=== PATIENT | female | born 1965 | race African-American/Black ===

== ENCOUNTER 2021-05-31 08:13 | Inpatient (IN) ==
[2021-05-31 15:07] LABS: Hematocrit 35.2 VOL% (35.7-47.0); Hemoglobin 11.6 GM/DL (12.0-16.0); Immature Granulocytes % 0.3 %; Immature Granulocytes Absolute 0.02 #; Lymphocytes # 1.8 10*3/uL (1.4-4.0); Lymphocytes % 24.6 % (21.3-54.2); Mean Corpuscular Volume 94.1 FL (87-102); Mean Platelet Volume 10.1 FL (9.6-12.0); Monocytes % 8.1 % (1.7-12.7); Platelet Count 254 T/CUMM (130-400); Red Blood Count 3.74 MC/CUMM (3.8-5.5); Red Cell Distribution Width 14.1 % (9.3-17.3); White Blood Count 7.4 T/CUMM (4-12)
[2021-05-31 15:27] LABS: Bilirubin,Total 1.1 MG/DL (0.20-1.00); Calcium 9.4 MG/DL (8.5-10.1); Osmolality,Calculated 280.4 MOS/KG (273-304); Potassium 3.3 MMOL/L (3.5-5.1); Total Protein 8.5 G/DL (6.4-8.2)
[2021-05-31] MEDS ORDERED: ONDANSETRON 4 MG/2 ML VIAL IV STA (17:57)
[2021-05-31] MEDS ORDERED: HYDROmorphone 2 MG/1 ML VIAL IV STA (17:57)
[2021-05-31] MEDS ORDERED: SODIUM CHLORIDE 0.9% 1,000 ML IV STA (17:57)
[2021-05-31] MEDS ORDERED: GLUCAGON 1 MG VIAL IM PRN (20:37)
[2021-05-31] MEDS ORDERED: ONDANSETRON 4 MG/2 ML VIAL IV PRN (20:37)
[2021-05-31] MEDS ORDERED: DEXTROSE 50% 25 GM/50 ML SYRINGE IV PRN (20:43)
[2021-05-31] MEDS ORDERED: INFLIXIMAB 100 MG/10 ML IV SCH (21:00)
[2021-06-01] MEDS ORDERED: cefTRIAXone 1,000 MG VIAL ONE (00:20)
[2021-06-01] MEDS: ENOXAPARIN 40 MG/0.4 ML SYRINGE SUBCUT SCH ×2 (00:32→20:18)
[2021-06-01] MEDS: cefTRIAXone 2,000 MG in SODIUM CHLORIDE 0.9% 100 ML IV SCH ×2 (00:39→20:16)
[2021-06-01 06:51] LABS: Basophils % 0.2 % (0.0-0.8); Eosinophils % 0.2 % (0.00-10.9); Hematocrit 29.1 VOL% (35.7-47.0); Hemoglobin 9.3 GM/DL (12.0-16.0); Immature Granulocytes % 0.3 %; Immature Granulocytes Absolute 0.02 #; Lymphocytes # 1.7 10*3/uL (1.4-4.0); Lymphocytes % 28.5 % (21.3-54.2); Mean Corpuscular Volume 95.7 FL (87-102); Mean Platelet Volume 10.2 FL (9.6-12.0); Monocytes % 9.2 % (1.7-12.7); Neutrophils % 61.6 % (38.7-73.9); Platelet Count 223 T/CUMM (130-400); Red Blood Count 3.04 MC/CUMM (3.8-5.5); Red Cell Distribution Width 14.4 % (9.3-17.3)
[2021-06-01 07:02] LABS: Bilirubin,Total 0.6 MG/DL (0.20-1.00); Calcium 8.4 MG/DL (8.5-10.1); Osmolality,Calculated 281.3 MOS/KG (273-304); Potassium 3.3 MMOL/L (3.5-5.1); Total Protein 6.4 G/DL (6.4-8.2)
[2021-06-01] MEDS ORDERED: POTASSIUM CHLORIDE 20 MEQ TABLET PO ONE (07:20)
[2021-06-01] MEDS: MORPHINE 2 MG/1 ML SYRINGE IV PRN (08:30)
[2021-06-01] MEDS: SODIUM CHLORIDE 0.9% 1,000 ML IV SCH ×4 (08:50→17:51)
[2021-06-01] MEDS ORDERED: ALBUTEROL/IPRATROPIUM 3 ML NEB RESP TX PRN (09:13)
[2021-06-01] MEDS: predniSONE 20 MG TABLET PO SCH (09:14)
[2021-06-01] MEDS: ISOSORBIDE MONONITRATE 30 MG TABLET PO SCH (09:14)
[2021-06-01] MEDS: ASPIRIN EC 81 MG TABLET PO SCH (09:14)
[2021-06-01] MEDS: METOPROLOL TARTRATE 25 MG TABLET PO SCH (10:49)
[2021-06-01] MEDS: PANTOPRAZOLE 40 MG VIAL IV SCH (10:49)
[2021-06-01] MEDS: POTASSIUM CHLORIDE RIDER 10 MEQ/100 ML PREMIX IV PRN ×3 (10:50→15:12)
[2021-06-01] MEDS ORDERED: ALBUTEROL/IPRATROPIUM 3 ML NEB RESP TX SCH (13:00)
[2021-06-01 18:13] LABS: Bacteria,Urine Occasional /HPF (Few); Bilirubin,Urine Negative (Negative); Blood, Urine Negative (Negative); Glucose,Urine (UA) Negative (Negative); Ketones,Urine 5 mg/dL (Negative); Mucus,Urine Moderate /LPF (Occasional); Nitrite,Urine Negative (Negative); Protein,Urine 30 MG/DL; RBC,Urine 2 /HPF (0-4); Squamous Epithelial Cell,Urine Occasional /HPF (0-10); Urine Appearance CLEAR (Clear); Urine Color Yellow (Yellow); Urine Urobilinogen < 2.0 EU/DL (0.2-1.0)
[2021-06-01] MEDS: ATORVASTATIN 20 MG TABLET PO SCH (20:15)
[2021-06-02] MEDS: SODIUM CHLORIDE 0.9% 1,000 ML IV SCH (02:19)
[2021-06-02 05:43] LABS: Basophils % 0.2 % (0.0-0.8); Eosinophils # 0.1 10*3/uL (0.0-0.87); Hematocrit 28.5 VOL% (35.7-47.0); Hemoglobin 9.4 GM/DL (12.0-16.0); Immature Granulocytes % 0.2 %; Immature Granulocytes Absolute 0.01 #; Lymphocytes # 1.8 10*3/uL (1.4-4.0); Lymphocytes % 36.1 % (21.3-54.2); Mean Platelet Volume 10.2 FL (9.6-12.0); Monocytes % 10.6 % (1.7-12.7); Neutrophils % 50.9 % (38.7-73.9); Platelet Count 241 T/CUMM (130-400); Red Cell Distribution Width 14.3 % (9.3-17.3)
[2021-06-02 05:59] LABS: Calcium 8.2 MG/DL (8.5-10.1); Osmolality,Calculated 287.6 MOS/KG (273-304); Potassium 3.7 MMOL/L (3.5-5.1)
[2021-06-02] MEDS: MORPHINE 2 MG/1 ML SYRINGE IV PRN (07:13)
[2021-06-02] MEDS ORDERED: SODIUM CHLORIDE 0.45% 1,000 ML IV SCH (08:00)
[2021-06-02] MEDS: ASPIRIN EC 81 MG TABLET PO SCH (09:46)
[2021-06-02] MEDS: ISOSORBIDE MONONITRATE 30 MG TABLET PO SCH (09:46)
[2021-06-02] MEDS: METOPROLOL TARTRATE 25 MG TABLET PO SCH (09:46)
[2021-06-02] MEDS: predniSONE 20 MG TABLET PO SCH (09:46)
[2021-06-02] MEDS: PANTOPRAZOLE 40 MG VIAL IV SCH (09:47)
[2021-06-02] MEDS: metroNIDAZOLE INJ 500 MG/100 ML PREMIX IV SCH ×2 (13:00→16:35)
[2021-06-02] MEDS: ATORVASTATIN 20 MG TABLET PO SCH (20:42)
[2021-06-02] MEDS: cefTRIAXone 2,000 MG in SODIUM CHLORIDE 0.9% 100 ML IV SCH (20:42)
[2021-06-02] MEDS: ENOXAPARIN 40 MG/0.4 ML SYRINGE SUBCUT SCH (20:42)
[2021-06-02] MEDS ORDERED: ACETAMINOPHEN 325 MG TABLET PO PRN (21:31)
[2021-06-03] MEDS: metroNIDAZOLE INJ 500 MG/100 ML PREMIX IV SCH ×2 (01:09→08:36)
[2021-06-03 06:32] LABS: Basophils % 0.1 % (0.0-0.8); Eosinophils # 0.1 10*3/uL (0.0-0.87); Eosinophils % 0.9 % (0.00-10.9); Hematocrit 26.5 VOL% (35.7-47.0); Hemoglobin 8.8 GM/DL (12.0-16.0); Immature Granulocytes % 0.3 %; Immature Granulocytes Absolute 0.02 #; Lymphocytes # 2.3 10*3/uL (1.4-4.0); Lymphocytes % 34.2 % (21.3-54.2); Mean Corpuscular HGB Conc 33.2 GM/DL (32-36); Mean Corpuscular Volume 94.3 FL (87-102); Neutrophils % 53.5 % (38.7-73.9); Platelet Count 245 T/CUMM (130-400); Red Blood Count 2.81 MC/CUMM (3.8-5.5); Red Cell Distribution Width 13.8 % (9.3-17.3); White Blood Count 6.7 T/CUMM (4-12)
[2021-06-03 06:57] LABS: Calcium 8.8 MG/DL (8.5-10.1); Osmolality,Calculated 280.1 MOS/KG (273-304); Potassium 3.1 MMOL/L (3.5-5.1)
[2021-06-03] MEDS ORDERED: POTASSIUM CHLORIDE 20 MEQ TABLET PO ONE (07:27)
[2021-06-03] MEDS: ASPIRIN EC 81 MG TABLET PO SCH (08:36)
[2021-06-03] MEDS: ISOSORBIDE MONONITRATE 30 MG TABLET PO SCH (08:36)
[2021-06-03] MEDS: METOPROLOL TARTRATE 25 MG TABLET PO SCH (08:36)
[2021-06-03] MEDS: predniSONE 20 MG TABLET PO SCH (08:36)
[2021-06-03] MEDS: PANTOPRAZOLE 40 MG VIAL IV SCH (08:37)
[2021-06-03 12:06] VITALS: BP 153/83
== END 2021-06-03 13:28 | disposition home or self-care (01) | DRG 392 ==
LOC: N.ED 08:13 → N.EDINP 20:37 → N.2E 06-01 00:33
PROVIDERS: ADMIT Internal Medicine; ATTEND Internal Medicine

== ENCOUNTER 2021-06-13 13:13 | Observation (INO) ==
[2021-06-13] MEDS ORDERED: SODIUM CHLORIDE 0.9% 1,000 ML IV STA (18:11)
[2021-06-13] MEDS ORDERED: ONDANSETRON 4 MG/2 ML VIAL IV STA (18:11)
[2021-06-13] MEDS ORDERED: METOCLOPRAMIDE 10 MG/2 ML VIAL IV STA (18:25)
[2021-06-13] MEDS ORDERED: MORPHINE 2 MG/1 ML SYRINGE IV STA ×2 (18:25→20:37)
[2021-06-13] MEDS ORDERED: PANTOPRAZOLE 40 MG VIAL IV STA (18:25)
[2021-06-13 18:55] LABS: Basophils % 0.1 % (0.0-0.8); Hematocrit 37.2 VOL% (35.7-47.0); Immature Granulocytes % 0.1 %; Immature Granulocytes Absolute 0.01 #; Lymphocytes # 1.6 10*3/uL (1.4-4.0); Lymphocytes % 22.1 % (21.3-54.2); Mean Corpuscular HGB Conc 32.3 GM/DL (32-36); Mean Corpuscular Volume 96.4 FL (87-102); Mean Platelet Volume 9.8 FL (9.6-12.0); Monocytes % 8.9 % (1.7-12.7); Neutrophils % 68.8 % (38.7-73.9); Platelet Count 308 T/CUMM (130-400); Red Blood Count 3.86 MC/CUMM (3.8-5.5); Red Cell Distribution Width 15.1 % (9.3-17.3); White Blood Count 7.1 T/CUMM (4-12)
[2021-06-13 19:16] LABS: Bilirubin,Total 0.6 MG/DL (0.20-1.00); Osmolality,Calculated 278.5 MOS/KG (273-304); Potassium 3.6 MMOL/L (3.5-5.1); Total Protein 8.4 G/DL (6.4-8.2)
[2021-06-13 20:02] LABS: Bilirubin,Urine Negative (Negative); Blood, Urine Negative (Negative); Glucose,Urine (UA) Negative (Negative); Ketones,Urine 5 mg/dL (Negative); Mucus,Urine Occasional /LPF (Occasional); Nitrite,Urine Negative (Negative); Protein,Urine 30 MG/DL; RBC,Urine 2 /HPF (0-4); Squamous Epithelial Cell,Urine Occasional /HPF (0-10); Urine Appearance CLEAR (Clear); Urine Color Yellow (Yellow); Urine Urobilinogen < 2.0 EU/DL (<2.0)
[2021-06-13 20:03] LABS: Urine Specific Gravity > 1.069 (1.001-1.035)
[2021-06-13] MEDS ORDERED: PROMETHAZINE INJ 25 MG in SODIUM CHLORIDE 0.9% 50 ML IV STA (20:43)
[2021-06-13] MEDS ORDERED: SUCRALFATE 1 GM/10 ML UDCUP PO STA (20:43)
[2021-06-13] MEDS ORDERED: ALUM/MAG/SIMETH/LIDO VISC 1:1 30 ML BOTTLE PO STA (20:43)
[2021-06-13] MEDS ORDERED: methylPREDNISolone SOD SUC 40 MG/1 ML VIAL IV STA (20:47)
[2021-06-13] MEDS ORDERED: PROMETHAZINE 25 MG/1 ML VIAL ONE (20:53)
[2021-06-13] MEDS ORDERED: GLUCAGON 1 MG VIAL IM PRN (22:57)
[2021-06-13] MEDS ORDERED: MORPHINE 2 MG/1 ML SYRINGE IV PRN (22:57)
[2021-06-13] MEDS ORDERED: ONDANSETRON 4 MG/2 ML VIAL IV PRN (22:57)
[2021-06-13] MEDS ORDERED: DEXTROSE 50% 25 GM/50 ML SYRINGE IV PRN (23:09)
[2021-06-13] MEDS ORDERED: INFLIXIMAB 100 MG/10 ML IV SCH (23:30)
[2021-06-14] MEDS: LACTATED RINGERS 1,000 ML IV SCH ×2 (00:33→14:04)
[2021-06-14] MEDS: ENOXAPARIN 40 MG/0.4 ML SYRINGE SUBCUT SCH ×2 (00:34→23:10)
[2021-06-14 05:41] LABS: Basophils % 0.2 % (0.0-0.8); Hematocrit 32.1 VOL% (35.7-47.0); Hemoglobin 10.3 GM/DL (12.0-16.0); Immature Granulocytes % 0.5 %; Immature Granulocytes Absolute 0.03 #; Lymphocytes # 0.7 10*3/uL (1.4-4.0); Mean Corpuscular HGB Conc 32.1 GM/DL (32-36); Mean Corpuscular Volume 96.4 FL (87-102); Mean Platelet Volume 9.8 FL (9.6-12.0); Monocytes % 1.5 % (1.7-12.7); Neutrophils % 87.8 % (38.7-73.9); Platelet Count 245 T/CUMM (130-400); Red Blood Count 3.33 MC/CUMM (3.8-5.5); Red Cell Distribution Width 14.8 % (9.3-17.3); White Blood Count 6.6 T/CUMM (4-12)
[2021-06-14 06:10] LABS: Osmolality,Calculated 274.8 MOS/KG (273-304); Potassium 4.1 MMOL/L (3.5-5.1)
[2021-06-14] MEDS: predniSONE 20 MG TABLET PO SCH ×2 (09:23→20:38)
[2021-06-14] MEDS: ASPIRIN EC 81 MG TABLET PO SCH (09:23)
[2021-06-14] MEDS: METOPROLOL TARTRATE 25 MG TABLET PO SCH (09:23)
[2021-06-14] MEDS: PANTOPRAZOLE 40 MG VIAL IV SCH ×2 (09:26→20:40)
[2021-06-14] MEDS ORDERED: ALUM/MAG/SIMETH/LIDO VISC 1:1 30 ML BOTTLE PO PRN (10:34)
[2021-06-14] MEDS ORDERED: ALUM/MAG/SIMETH/LIDO VISC 1:1 30 ML BOTTLE PO ONE (10:34)
[2021-06-14] MEDS: ATORVASTATIN 20 MG TABLET PO SCH (20:38)
[2021-06-15] MEDS: LACTATED RINGERS 1,000 ML IV SCH ×3 (04:09→16:53)
[2021-06-15 06:37] LABS: Basophils % 0.2 % (0.0-0.8); Hematocrit 31.5 VOL% (35.7-47.0); Hemoglobin 10.1 GM/DL (12.0-16.0); Immature Granulocytes % 0.4 %; Immature Granulocytes Absolute 0.02 #; Lymphocytes # 0.9 10*3/uL (1.4-4.0); Lymphocytes % 18.9 % (21.3-54.2); Mean Corpuscular HGB Conc 32.1 GM/DL (32-36); Mean Corpuscular Volume 96.6 FL (87-102); Mean Platelet Volume 10.3 FL (9.6-12.0); Monocytes % 8.2 % (1.7-12.7); Neutrophils % 72.3 % (38.7-73.9); Platelet Count 236 T/CUMM (130-400); Red Blood Count 3.26 MC/CUMM (3.8-5.5); Red Cell Distribution Width 14.9 % (9.3-17.3); White Blood Count 4.8 T/CUMM (4-12)
[2021-06-15 07:07] LABS: Osmolality,Calculated 283.1 MOS/KG (273-304)
[2021-06-15] MEDS: predniSONE 20 MG TABLET PO SCH ×2 (09:35→20:12)
[2021-06-15] MEDS: METOPROLOL TARTRATE 25 MG TABLET PO SCH (09:35)
[2021-06-15] MEDS: ASPIRIN EC 81 MG TABLET PO SCH (09:35)
[2021-06-15] MEDS: PANTOPRAZOLE 40 MG VIAL IV SCH ×2 (09:38→20:12)
[2021-06-15] MEDS ORDERED: LIDOCAINE 2% 5 ML VIAL ONE (13:30)
[2021-06-15] MEDS ORDERED: propofoL 200 MG/20 ML VIAL IV ONE (13:30)
[2021-06-15] MEDS: ATORVASTATIN 20 MG TABLET PO SCH (20:12)
[2021-06-15] MEDS: ENOXAPARIN 40 MG/0.4 ML SYRINGE SUBCUT SCH (22:22)
[2021-06-16 06:06] LABS: Eosinophils % 0.2 % (0.00-10.9); Hematocrit 32.3 VOL% (35.7-47.0); Hemoglobin 10.5 GM/DL (12.0-16.0); Immature Granulocytes % 0.4 %; Immature Granulocytes Absolute 0.02 #; Lymphocytes % 19.1 % (21.3-54.2); Mean Corpuscular HGB Conc 32.5 GM/DL (32-36); Mean Corpuscular Volume 95.3 FL (87-102); Mean Platelet Volume 11.5 FL (9.6-12.0); Monocytes % 6.4 % (1.7-12.7); Neutrophils % 73.9 % (38.7-73.9); Platelet Count 189 T/CUMM (130-400); Red Blood Count 3.39 MC/CUMM (3.8-5.5); Red Cell Distribution Width 14.7 % (9.3-17.3); White Blood Count 5.3 T/CUMM (4-12)
[2021-06-16 06:30] LABS: Calcium 9.2 MG/DL (8.5-10.1); Osmolality,Calculated 279.4 MOS/KG (273-304); Potassium 3.9 MMOL/L (3.5-5.1)
[2021-06-16] MEDS: LACTATED RINGERS 1,000 ML IV SCH ×2 (07:11→07:12)
[2021-06-16] MEDS ORDERED: PANTOPRAZOLE 40 MG TABLET PO SCH (09:00)
[2021-06-16] MEDS: METOPROLOL TARTRATE 25 MG TABLET PO SCH (09:45)
[2021-06-16] MEDS: predniSONE 20 MG TABLET PO SCH (09:45)
[2021-06-16] MEDS: ASPIRIN EC 81 MG TABLET PO SCH (09:45)
[2021-06-16 11:58] VITALS: BP 170/69
== END 2021-06-16 12:38 | disposition home or self-care (01) ==
LOC: N.5E 13:13 → N.ED 13:13 → SUATTDRO 22:57 → N.5E 06-14 01:00
PROVIDERS: ADMIT Emergency Medicine; ATTEND Internal Medicine